=== PATIENT | male | born 1985 | race Caucasian/White ===

== ENCOUNTER 2022-01-13 13:31 | Emergency (ER) | payer SELFPAY ==
[2022-01-13 14:31] LABS: BASO # 0.04 K/mm3 (0.02-0.10); EOS # 0.17 K/mm3 (0.04-0.40); EOS % 2.4 % (0.0-4.0); HEMATOCRIT 48.3 % (42.0-52.0); HEMOGLOBIN 15.8 g/dL (13.5-18.0); LYMPH# 1.79 K/mm3 (1.50-4.00); MEAN CELL VOLUME 88 fl (78-100); MEAN CORPUSCULAR HEMOGLOBIN 29 pg (27-31); MEAN CORPUSCULAR HGB CONC 33 g/dL (33-37); MONO # 0.48 K/mm3 (0.20-0.80); NEU # 4.45 K/mm3 (1.40-6.50); PLATELET COUNT 262 K/mm3 (130-400); RED CELL DISTRIBUTION WIDTH 13.2 % (11.5-14.5); WHITE BLOOD COUNT 6.9 K/mm3 (4.8-10.8)
[2022-01-13 14:46] LABS: ALBUMIN 4.4 g/dL (3.5-5.0); POTASSIUM 4.1 mmol/L (3.5-5.1)
[2022-01-13 14:47] LABS: CALCIUM 9.5 mg/dL (8.3-10.5)
[2022-01-13 14:48] LABS: TOTAL PROTEIN 7.7 g/dL (6.4-8.3)
[2022-01-13 14:50] LABS: TOTAL BILIRUBIN 0.4 mg/dL (0.2-1.2)
[2022-01-13 15:45] VITALS: BP 138/99
== END 2022-01-13 15:44 | disposition home or self-care (01) ==
LOC: ED 13:31
PROVIDERS: Physician Assistant
DX: K59.00 Constipation, unspecified (principal); Z28.310 Unvaccinated for COVID-19